=== PATIENT | male | born 1960 | race Caucasian/White ===

== ENCOUNTER 2017-07-06 10:56 | Inpatient (IN) | payer OTHER ==
[2017-07-06] MEDS ORDERED: Sodium Chloride 0.9% 2.5 ML Syringe FLUSH PRN (11:28)
[2017-07-06] MEDS ORDERED: Sodium Chloride 0.9% 10 ML Syringe FLUSH PRN (11:28)
[2017-07-06] MEDS ORDERED: Sodium Chloride 0.9% 1,000 ML IV ONE (11:29)
[2017-07-06] MEDS ORDERED: Acetaminophen 325 MG Tab PO ONE (11:30)
--- NOTE | 2017-07-06 11:37 | EDM.PDOC ---
ED HPI GENERAL MEDICAL PROBLEM - General Chief Complaint: Respiratory Problem Stated Complaint: COUGH,FEVER Time Seen by Provider: 07/06/17 11:34 Source of Information: Reports: Patient History Limitations: Reports: No Limitations - History of Present Illness INITIAL COMMENTS - FREE TEXT/NARRATIVE: HISTORY AND PHYSICAL: []56-year-old male presenting with shortness of breath cough 4 days History of Present Illness: []Patient denies any chest pain has some shortness of breath wheezing He had some small component of asthma when he was a child Patient states that he had a catheterization 2 years ago and everything was clear Review of Systems: As per history of present illness and below otherwise all systems reviewed and negative. Past medical history: As per history of present illness and as reviewed below otherwise noncontributory. Surgical history: As per history of present illness and as reviewed below otherwise noncontributory. Social history: No reported history of drug or alcohol abuse. Family history: As per history of present illness and as reviewed below otherwise noncontributory. Physical exam: Alert' oriented gentleman who is perspiring he was given Tylenol for fever when he first arrived to the emergency department. He is answering questions appropriately in full sentences without severe shortness of breath HEENT: Atraumatic, normocehpalic, pupils reactive, negative for conjunctival pallor or scleral icterus, mucous membranes moist, throat clear, neck supple, nontender, trachea midline. Lungs: Wheezing on auscultation, breath sounds equal bilaterally, chest non tender. shallow. Heart: S1S2, regular, negative for clicks, rubs, or JVD. Abdomen: Soft, nondistended, nontender. Negative for masses or hepatossplenmegaly. Negative for costovertebral tenderness. Pelvis: Stable nontender. Genitourinary: Deferred. Rectal: Deferred Extremities: Atraumatic, negative for cords or calf pain. Neurovascular unremarkable. Neuro: Awake, alert, oriented. Cranial nerves II through XII unremarkable. Cerebellum unremarkable. Motor and sensory unremarkable throughout. Exam nonfocal. Diagnostics: []cbc cmp troponin ekg Therapeutics: []duoneb Tylenol Impression: []Pneumonia Elevated troponin Plan: [] Definitive disposition and diagnosis as appropriate pending reevaluation and review of above. Onset: Gradual Duration: Day(s): (4), Getting Worse Location: Reports: Chest Quality: Reports: Other (whezing) Severity: Moderate Improves with: Reports: None Worsens with: Reports: None - Related Data Allergies Allergy/AdvReac Type Severity Reaction Status Date / Time No Known Allergies Allergy Verified 07/06/17 11:23 Home Meds: Home Meds Losartan/Hydrochlorothiazide [Losartan-HCTZ 100-12.5 MG] 100 mg PO DAILY [History] Metoprolol Succinate [Toprol XL] 07/06/17 [History] amLODIPine [Norvasc] 10 mg PO BEDTIME 07/06/17 [History] cloNIDine [Catapres] 0.2 mg PO DAILY 07/06/17 [History] Past Medical History Cardiovascular History: Reports: High Cholesterol, Hypertension - Infectious Disease History Infectious Disease History: Reports: Chicken Pox Social & Family History - Family History Family Medical History: Noncontributory - Tobacco Use Smoking Status *Q: Never Smoker - Caffeine Use Caffeine Use: Reports: Coffee - Recreational Drug Use Recreational Drug Use: No ED ROS GENERAL - Review of Systems Review Of Systems: ROS reveals no pertinent complaints other than HPI. ED EXAM, GENERAL - Physical Exam Exam: See Below Course - Vital Signs Last Recorded V/S: Last Vital Signs Temp 36.9 C 07/06/17 12:43 Pulse 86 07/06/17 14:01 Resp 12 07/06/17 14:01 BP 152/78 H 07/06/17 14:01 Pulse Ox 95 07/06/17 14:01 - Orders/Labs/Meds Orders: Active Orders 24 hr Category Date Time Status Patient Status [ADT] Stat ADT 07/06/17 14:05 Ordered EKG Documentation Completion [RC] STAT Care 07/06/17 12:32 Active RT Aerosol Therapy [RC] ASDIRECTED Care 07/06/17 12:18 Active Chest 1V Frontal [CR] Stat Exams 07/06/17 12:46 Taken CULTURE BLOOD [BC] Stat Lab 07/06/17 11:50 Results CULTURE BLOOD [BC] Stat Lab 07/06/17 11:55 Results RESPIRATORY SYNCYTIAL VIRUS AG [RM] Stat Lab 07/06/17 12:03 Ordered Sodium Chloride 0.9% [Saline Flush] Med 07/06/17 11:28 Active 10 ml FLUSH ASDIRECTED PRN Sodium Chloride 0.9% [Saline Flush] Med 07/06/17 11:28 Active 2.5 ml FLUSH ASDIRECTED PRN cefTRIAXone [Rocephin] 1 gm Med 07/06/17 13:45 Active Sodium Chloride 0.9% [Normal Saline] 50 ml IV ONETIME Blood Culture x2 Reflex Set [OM.PC] Stat Oth 07/06/17 11:28 Ordered Saline Lock Insert [OM.PC] Stat Oth 07/06/17 11:28 Ordered Medication Orders Ceftriaxone Sodium 1 gm/ (Sodium Chloride) 50 mls @ 100 mls/hr IV ONETIME MEKHI Last Admin: 07/06/17 13:54 Dose: 100 mls/hr Sodium Chloride (Saline Flush) 10 ml FLUSH ASDIRECTED PRN PRN Reason: Keep Vein Open Last Admin: 07/06/17 11:53 Dose: 10 ml Sodium Chloride (Saline Flush) 2.5 ml FLUSH ASDIRECTED PRN PRN Reason: Keep Vein Open Last Admin: 07/06/17 11:53 Dose: 2.5 ml Labs: Laboratory Tests 07/06/17 07/06/17 07/06/17 Range/Units 11:55 11:55 13:03 WBC 5.99 (4.0-11.0) K/uL RBC 5.05 (4.50-5.90) M/uL Hgb 15.1 (13.0-17.0) g/dL Hct 43.4 (38.0-50.0) % MCV 85.9 (80.0-98.0) fL MCH 29.9 (27.0-32.0) pg MCHC 34.8 (31.0-37.0) g/dL RDW Std Deviation 42.3 (28.0-62.0) fl RDW Coeff of Osman 14 (11.0-15.0) % Plt Count 170 (150-400) K/uL MPV 10.70 (7.40-12.00) fL Neut % (Auto) 71.2 (48.0-80.0) % Lymph % (Auto) 13.7 L (16.0-40.0) % [place] % (Auto) 14.9 (0.0-15.0) % Eos % (Auto) 0.0 (0.0-7.0) % Baso % (Auto) 0.2 (0.0-1.5) % Neut # (Auto) 4.3 (1.4-5.7) K/uL Lymph # (Auto) 0.8 (0.6-2.4) K/uL [place] # (Auto) 0.9 H (0.0-0.8) K/uL Eos # (Auto) 0.0 (0.0-0.7) K/uL Baso # (Auto) 0.0 (0.0-0.1) K/uL Nucleated RBC % 0.0 /100WBC Nucleated RBCs # 0 K/uL Lactate 0.9 (0.20-2.00) mmol/L Sodium 136 (136-148) mmol/L Potassium 2.9 L (3.5-5.1) mmol/L Chloride 98 (98-107) mmol/L Carbon Dioxide 30.9 (21.0-32.0) mmol/L BUN 13 (7.0-18.0) mg/dL Creatinine 1.2 (0.8-1.3) mg/dL Est Cr Clr Drug Dosing 62.73 mL/min Estimated GFR (MDRD) > 60.0 ml/min Glucose 162 H (74-106) mg/dL Calcium 8.8 (8.5-10.1) mg/dL Total Bilirubin 0.5 (0.2-1.0) mg/dL AST 38 H (15-37) IU/L ALT 45 (14-63) IU/L Alkaline Phosphatase 58 (46-116) U/L Troponin I 0.142 H* (0.000-0.056) ng/mL Total Protein 7.5 (6.4-8.2) g/dL Albumin 3.2 L (3.4-5.0) g/dL Globulin 4.3 H (2.0-3.5) g/dL Albumin/Globulin Ratio 0.7 L (1.3-2.8) Lipase 141 (73-393) U/L Meds: Medications Generic Name Dose Route Start Last Admin Trade Name Freq PRN Reason Stop Dose Admin Ceftriaxone Sodium 1 gm/ 50 mls @ 100 mls/hr 07/06/17 13:45 07/06/17 13:54 Sodium Chloride IV 100 mls/hr ONETIME MEKHI Administration Sodium Chloride 10 ml 07/06/17 11:28 07/06/17 11:53 Saline Flush FLUSH 10 ml ASDIRECTED PRN Administration Keep Vein Open Sodium Chloride 2.5 ml 07/06/17 11:28 07/06/17 11:53 Saline Flush FLUSH 2.5 ml ASDIRECTED PRN Administration Keep Vein Open Discontinued Medications Generic Name Dose Route Start Last Admin Trade Name Freq PRN Reason Stop Dose Admin Acetaminophen 650 mg 07/06/17 11:30 07/06/17 11:56 Tylenol PO 07/06/17 11:31 650 mg NOW ONE Administration Albuterol/Ipratropium 3 ml 07/06/17 12:18 07/06/17 12:45 Duoneb 3.0-0.5 Mg/3 Ml NEB 07/06/17 12:19 3 ml ONETIME ONE Administration Azithromycin 500 mg 07/06/17 13:40 07/06/17 13:54 Zithromax PO 07/06/17 13:41 500 mg ONETIME ONE Administration Sodium Chloride 1,000 mls @ 999 mls/hr 07/06/17 11:29 07/06/17 11:52 Normal Saline IV 07/06/17 12:29 999 mls/hr STAT ONE Administration Ceftriaxone Sodium/Dextrose 1 50 mls @ 100 mls/hr 07/06/17 13:41 07/06/17 13: 55 gm/ Premix IV 07/06/17 14:10 Not Given ONETIME ONE Departure - Departure Time of Disposition: 14:07 Disposition: Home, Self-Care 01 Condition: Good Clinical Impression: Pneumonia Qualifiers: Pneumonia type: due to unspecified organism Laterality: unspecified laterality Lung location: unspecified part of lung Qualified Code(s): J18.9 - Pneumonia, unspecified organism - Discharge Information Referrals: PCP,None [Primary Care Provider] - Forms: ED Department Discharge Additional Instructions: The following information is given to patients seen in the emergency department who are being discharged to home. This information is to outline your options for follow-up care. We provide all patients seen in our emergency department with a follow-up referral. The need for follow-up, as well as the timing and circumstances, are variable depending upon the specifics of your emergency department visit. If you don't have a primary care physician on staff, we will provide you with a referral. We always advise you to contact your personal physician following an emergency department visit to inform them of the circumstance of the visit and for follow-up with them and/or the need for any referrals to a consulting specialist. The emergency department will also refer you to a specialist when appropriate. This referral assures that you have the opportunity for followup care with a specialist. All of these measure are taken in an effort to provide you with optimal care, which includes your followup. Under all circumstances we always encourage you to contact your private physician who remains a resource for coordinating your care. When calling for followup care, please make the office aware that this follow-up is from your recent emergency room visit. If for any reason you are refused follow-up, please contact the [facility] emergency department at and asked to speak to the emergency department charge nurse. - My Orders Last 24 Hours: My Active Orders 07/06/17 11:28 Sodium Chloride 0.9% [Saline Flush] 10 ml FLUSH ASDIRECTED PRN Sodium Chloride 0.9% [Saline Flush] 2.5 ml FLUSH ASDIRECTED PRN Blood Culture x2 Reflex Set [OM.PC] Stat Saline Lock Insert [OM.PC] Stat 07/06/17 11:50 CULTURE BLOOD [BC] Stat 07/06/17 11:55 CULTURE BLOOD [BC] Stat 07/06/17 12:03 RESPIRATORY SYNCYTIAL VIRUS AG [RM] Stat 07/06/17 12:18 RT Aerosol Therapy [RC] ASDIRECTED 07/06/17 12:32 EKG Documentation Completion [RC] STAT 07/06/17 12:46 Chest 1V Frontal [CR] Stat 07/06/17 13:45 cefTRIAXone [Rocephin] 1 gm Sodium Chloride 0.9% [Normal Saline] 50 ml IV ONETIME 07/06/17 14:05 Patient Status [ADT] Stat - Assessment/Plan Last 24 Hours: My Active Orders 07/06/17 11:28 Sodium Chloride 0.9% [Saline Flush] 10 ml FLUSH ASDIRECTED PRN Sodium Chloride 0.9% [Saline Flush] 2.5 ml FLUSH ASDIRECTED PRN Blood Culture x2 Reflex Set [OM.PC] Stat Saline Lock Insert [OM.PC] Stat 07/06/17 11:50 CULTURE BLOOD [BC] Stat 07/06/17 11:55 CULTURE BLOOD [BC] Stat 07/06/17 12:03 RESPIRATORY SYNCYTIAL VIRUS AG [RM] Stat 07/06/17 12:18 RT Aerosol Therapy [RC] ASDIRECTED 07/06/17 12:32 EKG Documentation Completion [RC] STAT 07/06/17 12:46 Chest 1V Frontal [CR] Stat 07/06/17 13:45 cefTRIAXone [Rocephin] 1 gm Sodium Chloride 0.9% [Normal Saline] 50 ml IV ONETIME 07/06/17 14:05 Patient Status [ADT] Stat
[2017-07-06] MEDS ORDERED: Albuterol/Ipratropium 3.0-0.5 MG/3 ML Neb Soln NEB ONE (12:18)
[2017-07-06 12:30] LABS: CHLORIDE,CL 98 mmol/L (98-107); SODIUM,NA 136 mmol/L (136-148)
[2017-07-06] MEDS ORDERED: Azithromycin 250 MG Tab PO ONE (13:40)
[2017-07-06] MEDS ORDERED: cefTRIAXone 1 GM in Premix Bag 1 BAG IV ONE (13:41)
[2017-07-06] MEDS ORDERED: cefTRIAXone 1 GM in Sodium Chloride 0.9% 50 ML IV SCH (13:45)
[2017-07-06] MEDS ORDERED: Potassium Chloride 20 MEQ Tab.ER PO ONE (15:25)
[2017-07-06] MEDS ORDERED: Sodium Chloride 0.9% with KCl 1,000 ML IV SCH (15:30)
[2017-07-06] MEDS ORDERED: Aspirin 325 MG Tab PO ONE (18:20)
--- NOTE | 2017-07-06 18:37 | PCM.HP ---
H&P History of Present Illness - General Admit Problem/Dx: Admission Diagnosis/Problem Admission Diagnosis/Problem Pneumonia - History of Present Illness Initial Comments - Free Text/Narative: 56 yo male who presents with four day history of shortness of breath, productive cough, fevers and chills. Patient denies any chest pain, abdominal pain or nausea. - Related Data Allergies/Adverse Reactions: Allergies Allergy/AdvReac Type Severity Reaction Status Date / Time No Known Allergies Allergy Verified 07/06/17 15:26 Home Medications: Home Meds Aspirin [Halfprin] 81 mg PO DAILY 07/06/17 [History] Losartan/Hydrochlorothiazide [Losartan-HCTZ 100-12.5 MG] 100 mg PO DAILY [History] Metoprolol Succinate [Toprol XL 100mg] 100 mg PO DAILY 07/06/17 [History] amLODIPine [Norvasc] 10 mg PO BEDTIME 07/06/17 [History] cloNIDine [Catapres] 0.2 mg PO DAILY 07/06/17 [History] Past Medical History HEENT History: Reports: None Cardiovascular History: Reports: High Cholesterol, Hypertension Musculoskeletal History: Reports: Fracture, Other (See Below) Other Musculoskeletal History: Right femur fracture 1977. - Infectious Disease History Infectious Disease History: Reports: Chicken Pox - Past Surgical History HEENT Surgical History: Reports: None Cardiovascular Surgical History: Reports: None Musculoskeletal Surgical History: Reports: None Social & Family History - Family History Family Medical History: Noncontributory Cardiac: Reports: Hypertension - Tobacco Use Smoking Status *Q: Never Smoker Second Hand Smoke Exposure: No - Caffeine Use Caffeine Use: Reports: Coffee, Soda - Alcohol Use Days Per Week of Alcohol Use: 2 Number of Drinks Per Day: 1 Total Drinks Per Week: 2 Date of Last Drink: 06/29/17 Time of Last Drink: 21:00 - Recreational Drug Use Recreational Drug Use: No H&P Review of Systems - Review of Systems: Review Of Systems: ROS reveals no pertinent complaints other than HPI. Exam - Vital Signs Vital Signs: Last Vital Signs Temp 35.8 C 07/06/17 16:16 Pulse 85 07/06/17 16:16 Resp 18 07/06/17 16:16 BP 157/74 H 07/06/17 16:16 Pulse Ox 96 07/06/17 16:16 Weight: 122.969 kg - Exam General: Alert, Oriented HEENT: Mucosa Moist & [place] Neck: Supple Lungs: Clear to Auscultation, Normal Respiratory Effort Cardiovascular: Regular Rate, Regular Rhythm GI/Abdominal Exam: Soft, Non-Tender Extremities: Non-Tender, No Pedal Edema Skin: Warm, Dry, Intact - Patient Data Lab Results Last 24 hrs: Laboratory Results - last 24 hr 07/06/17 07/06/17 07/06/17 Range/Units 11:55 11:55 13:03 WBC 5.99 (4.0-11.0) K/uL RBC 5.05 (4.50-5.90) M/uL Hgb 15.1 (13.0-17.0) g/dL Hct 43.4 (38.0-50.0) % MCV 85.9 (80.0-98.0) fL MCH 29.9 (27.0-32.0) pg MCHC 34.8 (31.0-37.0) g/dL RDW Std Deviation 42.3 (28.0-62.0) fl RDW Coeff of Osman 14 (11.0-15.0) % Plt Count 170 (150-400) K/uL MPV 10.70 (7.40-12.00) fL Neut % (Auto) 71.2 (48.0-80.0) % Lymph % (Auto) 13.7 L (16.0-40.0) % [place] % (Auto) 14.9 (0.0-15.0) % Eos % (Auto) 0.0 (0.0-7.0) % Baso % (Auto) 0.2 (0.0-1.5) % Neut # (Auto) 4.3 (1.4-5.7) K/uL Lymph # (Auto) 0.8 (0.6-2.4) K/uL [place] # (Auto) 0.9 H (0.0-0.8) K/uL Eos # (Auto) 0.0 (0.0-0.7) K/uL Baso # (Auto) 0.0 (0.0-0.1) K/uL Nucleated RBC % 0.0 /100WBC Nucleated RBCs # 0 K/uL Lactate 0.9 (0.20-2.00) mmol/L Sodium 136 (136-148) mmol/L Potassium 2.9 L (3.5-5.1) mmol/L Chloride 98 (98-107) mmol/L Carbon Dioxide 30.9 (21.0-32.0) mmol/L BUN 13 (7.0-18.0) mg/dL Creatinine 1.2 (0.8-1.3) mg/dL Est Cr Clr Drug Dosing 62.73 mL/min Estimated GFR (MDRD) > 60.0 ml/min Glucose 162 H (74-106) mg/dL Calcium 8.8 (8.5-10.1) mg/dL Total Bilirubin 0.5 (0.2-1.0) mg/dL AST 38 H (15-37) IU/L ALT 45 (14-63) IU/L Alkaline Phosphatase 58 (46-116) U/L Troponin I 0.142 H* (0.000-0.056) ng/mL Total Protein 7.5 (6.4-8.2) g/dL Albumin 3.2 L (3.4-5.0) g/dL Globulin 4.3 H (2.0-3.5) g/dL Albumin/Globulin Ratio 0.7 L (1.3-2.8) Lipase 141 (73-393) U/L Result Diagrams: 07/06/17 11:55 07/06/17 11:55 Wagner Results Last 24 hrs: Microbiology 07/06/17 12:03 Respiratory Syncytial Virus Ag Scrn - Final Nasal, Unspecified NEGATIVE RSV ANTIGEN 07/06/17 11:55 Anaerobic Blood Culture - Final Blood - Venous - Lab Draw 07/06/17 11:50 Anaerobic Blood Culture - Final Blood - Venous Problem List Initiated/Reviewed/Updated: Yes Orders Last 24hrs: Active Orders 24 hr Category Date Time Status Patient Status [ADT] Stat ADT 07/06/17 14:05 Active Cardiac Monitoring [RC] CONTINUOUS Care 07/06/17 18:33 Ordered Oxygen Therapy [RC] PRN Care 07/06/17 18:33 Ordered RT Aerosol Therapy [RC] ASDIRECTED Care 07/06/17 12:18 Active Up ad Jennifer [RC] ASDIRECTED Care 07/06/17 18:33 Ordered VTE/DVT Education [RC] PER UNIT ROUTINE Care 07/06/17 18:33 Ordered Vital Signs [RC] Q4H Care 07/06/17 18:33 Ordered Regular Diet [DIET] Diet 07/06/17 Dinner Active Chest 1V Frontal [CR] Stat Exams 07/06/17 12:46 Taken BASIC METABOLIC PANEL,BMP [CHEM] AM Lab 07/07/17 05:11 Ordered CBC WITH AUTO DIFF [HEME] AM Lab 07/07/17 05:11 Ordered CULTURE BLOOD [BC] Stat Lab 07/06/17 11:50 Results CULTURE BLOOD [BC] Stat Lab 07/06/17 11:55 Results RESPIRATORY SYNCYTIAL VIRUS AG [RM] Stat Lab 07/06/17 12:03 Ordered TROPONIN I [CHEM] Q6H Lab 07/06/17 17:53 Ordered TROPONIN I [CHEM] Q6H Lab 07/06/17 23:53 Ordered Aspirin [Halfprin] Med 07/07/17 09:00 Ordered 81 mg PO DAILY Azithromycin [Zithromax] Med 07/07/17 13:00 Ordered 500 mg PO Q24H Losartan/Hydrochlorothiazide [Losartan-HCTZ 100-12.5 MG Med 07/07/17 09:00 Ordered ] 100 mg PO DAILY Metoprolol Succinate [Toprol XL] Med 07/07/17 09:00 Ordered 100 mg PO DAILY Sodium Chloride 0.9% [Saline Flush] Med 07/06/17 11:28 Active 10 ml FLUSH ASDIRECTED PRN Sodium Chloride 0.9% [Saline Flush] Med 07/06/17 11:28 Active 2.5 ml FLUSH ASDIRECTED PRN Sodium Chloride 0.9% with KCl [Normal Saline with 40 Med 07/06/17 15:30 Active mEq KCl] 1,000 ml IV ASDIRECTED amLODIPine [Norvasc] Med 07/06/17 21:00 Ordered 10 mg PO BEDTIME cefTRIAXone [Rocephin] Med 07/07/17 13:00 Ordered 1,000 mg IVPUSH Q24H cefTRIAXone [Rocephin] 1 gm Med 07/06/17 13:45 Active Sodium Chloride 0.9% [Normal Saline] 50 ml IV ONETIME cloNIDine [Catapres] Med 07/07/17 09:00 Ordered 0.2 mg PO DAILY Blood Culture x2 Reflex Set [OM.PC] Stat Oth 07/06/17 11:28 Ordered Saline Lock Insert [OM.PC] Stat Oth 07/06/17 11:28 Ordered Sequential Compression Device [OM.PC] Per Unit Routine Oth 07/06/17 18:33 Ordered Resuscitation Status Routine Resus Stat 07/06/17 18:33 Ordered Medication Orders Amlodipine Besylate (Norvasc) 10 mg PO BEDTIME MEKHI Aspirin (Halfprin) 81 mg PO DAILY MEKHI Azithromycin (Zithromax) 500 mg PO Q24H MEKHI Ceftriaxone Sodium (Rocephin) 1,000 mg IVPUSH Q24H [facility] Ceftriaxone Sodium 1 gm/ (Sodium Chloride) 50 mls @ 100 mls/hr IV ONETIME MEKHI Last Admin: 07/06/17 13:54 Dose: 100 mls/hr Potassium Chloride/Sodium Chloride (Normal Saline With 40 Meq Kcl) 1,000 mls @ 150 mls/hr IV ASDIRECTED MEKHI Stop: 07/06/17 22:09 Last Admin: 07/06/17 16:02 Dose: 150 mls/hr Metoprolol Succinate (Toprol Xl) 100 mg PO DAILY [facility] Non-Formulary Medication (Clonidine [Catapres]) 0.2 mg PO DAILY [facility] Non-Formulary Medication (Losartan/Hydrochlorothiazide [Losartan-Hctz 100-12.5 Mg]) 100 mg PO DAILY [facility] Sodium Chloride (Saline Flush) 10 ml FLUSH ASDIRECTED PRN PRN Reason: Keep Vein Open Last Admin: 07/06/17 11:53 Dose: 10 ml Sodium Chloride (Saline Flush) 2.5 ml FLUSH ASDIRECTED PRN PRN Reason: Keep Vein Open Last Admin: 07/06/17 11:53 Dose: 2.5 ml Assessment/Plan Comment:: 56 yo male admitted with pneumonia. We will treat with Rocephin and azithromycin. Cardiac enzymes are mildly elevated so will trend these. Patient denies any chest pain.
[2017-07-06] MEDS: Enoxaparin 40 MG/0.4 ML Syringe SUBCUT SCH (18:54)
[2017-07-06] MEDS: amLODIPine 5 MG Tab PO SCH (20:42)
[2017-07-06] MEDS: Albuterol/Ipratropium 3.0-0.5 MG/3 ML Neb Soln NEB PRN (21:02)
[2017-07-07] MEDS: Albuterol/Ipratropium 3.0-0.5 MG/3 ML Neb Soln NEB PRN (01:30)
[2017-07-07] MEDS ORDERED: methylPREDNISolone Sodium Succinate 125 MG/2 ML SDV IVPUSH ONE (03:00)
[2017-07-07 06:19] LABS: CHLORIDE,CL 102 mmol/L (98-107); SODIUM,NA 141 mmol/L (136-148)
[2017-07-07] MEDS ORDERED: Hydrochlorothiazide 12.5 MG Cap PO SCH (09:00)
[2017-07-07] MEDS: cloNIDine 0.1 MG Tab PO SCH (09:14)
[2017-07-07] MEDS: Losartan 50 MG Tab PO SCH (09:18)
[2017-07-07] MEDS: Aspirin 81 MG Tab.EC PO SCH (09:20)
[2017-07-07] MEDS: Metoprolol Succinate 100 MG Tab.ER PO SCH (09:23)
--- NOTE | 2017-07-07 09:47 | PCM.PN ---
- General Info Date of Service: 07/07/17 Admission Dx/Problem (Free Text): Admission Diagnosis/Problem Admission Diagnosis/Problem Pneumonia Subjective Update: Sitting up in the chair, reports feeling a little better. Still having some wheezing intermittently and dyspnea with productive cough. No chest pain or palpitations. No abdominal pain. Concerned about COPD Functional Status: Reports: Pain Controlled, Tolerating Diet, Urinating - Review of Systems General: Reports: Fatigue, Malaise. Denies: Fever HEENT: Reports: No Symptoms. Denies: Headaches, Sore Throat, Visual Changes Pulmonary: Reports: Shortness of Breath, Cough, Sputum, Wheezing. Denies: Hemoptysis Cardiovascular: Reports: No Symptoms. Denies: Chest Pain, Palpitations, Edema, Lightheadedness Gastrointestinal: Reports: No Symptoms. Denies: Abdominal Pain, Nausea, Vomiting Genitourinary: Reports: No Symptoms. Denies: Dysuria Musculoskeletal: Reports: No Symptoms Skin: Reports: No Symptoms Neurological: Reports: No Symptoms Psychiatric: Reports: No Symptoms - Patient Data Vitals - Most Recent: Last Vital Signs Temp 99.0 F 07/07/17 08:00 Pulse 103 H 07/07/17 09:23 Resp 20 07/07/17 08:00 BP 167/108 H 07/07/17 09:23 Pulse Ox 93 L 07/07/17 08:00 Weight - Most Recent: 122.969 kg I&O - Last 24 Hours: Intake & Output 07/06/17 07/07/17 07/07/17 22:59 06:59 14:59 Intake Total 1000 250 Output Total 350 Balance 1000 -100 Lab Results Last 24 Hours: Laboratory Results - last 24 hr 07/06/17 07/06/17 07/06/17 Range/Units 11:55 11:55 13:03 WBC 5.99 (4.0-11.0) K/uL RBC 5.05 (4.50-5.90) M/uL Hgb 15.1 (13.0-17.0) g/dL Hct 43.4 (38.0-50.0) % MCV 85.9 (80.0-98.0) fL MCH 29.9 (27.0-32.0) pg MCHC 34.8 (31.0-37.0) g/dL RDW Std Deviation 42.3 (28.0-62.0) fl RDW Coeff of Osman 14 (11.0-15.0) % Plt Count 170 (150-400) K/uL MPV 10.70 (7.40-12.00) fL Neut % (Auto) 71.2 (48.0-80.0) % Lymph % (Auto) 13.7 L (16.0-40.0) % [place] % (Auto) 14.9 (0.0-15.0) % Eos % (Auto) 0.0 (0.0-7.0) % Baso % (Auto) 0.2 (0.0-1.5) % Neut # (Auto) 4.3 (1.4-5.7) K/uL Lymph # (Auto) 0.8 (0.6-2.4) K/uL [place] # (Auto) 0.9 H (0.0-0.8) K/uL Eos # (Auto) 0.0 (0.0-0.7) K/uL Baso # (Auto) 0.0 (0.0-0.1) K/uL Nucleated RBC % 0.0 /100WBC Nucleated RBCs # 0 K/uL Lactate 0.9 (0.20-2.00) mmol/L Sodium 136 (136-148) mmol/L Potassium 2.9 L (3.5-5.1) mmol/L Chloride 98 (98-107) mmol/L Carbon Dioxide 30.9 (21.0-32.0) mmol/L BUN 13 (7.0-18.0) mg/dL Creatinine 1.2 (0.8-1.3) mg/dL Est Cr Clr Drug Dosing 62.73 mL/min Estimated GFR (MDRD) > 60.0 ml/min Glucose 162 H (74-106) mg/dL Calcium 8.8 (8.5-10.1) mg/dL Magnesium (1.5-2.0) mg/dL Total Bilirubin 0.5 (0.2-1.0) mg/dL AST 38 H (15-37) IU/L ALT 45 (14-63) IU/L Alkaline Phosphatase 58 (46-116) U/L Troponin I 0.142 H* (0.000-0.056) ng/mL Total Protein 7.5 (6.4-8.2) g/dL Albumin 3.2 L (3.4-5.0) g/dL Globulin 4.3 H (2.0-3.5) g/dL Albumin/Globulin Ratio 0.7 L (1.3-2.8) Lipase 141 (73-393) U/L 07/06/17 07/06/17 07/07/17 Range/Units 18:12 23:52 05:39 WBC 7.01 (4.0-11.0) K/uL RBC 4.79 (4.50-5.90) M/uL Hgb 14.0 (13.0-17.0) g/dL Hct 42.3 (38.0-50.0) % MCV 88.3 (80.0-98.0) fL MCH 29.2 (27.0-32.0) pg MCHC 33.1 (31.0-37.0) g/dL RDW Std Deviation 44.7 (28.0-62.0) fl RDW Coeff of Osman 14 (11.0-15.0) % Plt Count 176 (150-400) K/uL MPV 11.20 (7.40-12.00) fL Neut % (Auto) 88.4 H (48.0-80.0) % Lymph % (Auto) 7.1 L (16.0-40.0) % [place] % (Auto) 4.3 (0.0-15.0) % Eos % (Auto) 0.1 (0.0-7.0) % Baso % (Auto) 0.1 (0.0-1.5) % Neut # (Auto) 6.2 H (1.4-5.7) K/uL Lymph # (Auto) 0.5 L (0.6-2.4) K/uL [place] # (Auto) 0.3 (0.0-0.8) K/uL Eos # (Auto) 0.0 (0.0-0.7) K/uL Baso # (Auto) 0.0 (0.0-0.1) K/uL Nucleated RBC % 0.0 /100WBC Nucleated RBCs # 0 K/uL Lactate (0.20-2.00) mmol/L Sodium (136-148) mmol/L Potassium (3.5-5.1) mmol/L Chloride (98-107) mmol/L Carbon Dioxide (21.0-32.0) mmol/L BUN (7.0-18.0) mg/dL Creatinine (0.8-1.3) mg/dL Est Cr Clr Drug Dosing mL/min Estimated GFR (MDRD) ml/min Glucose (74-106) mg/dL Calcium (8.5-10.1) mg/dL Magnesium (1.5-2.0) mg/dL Total Bilirubin (0.2-1.0) mg/dL AST (15-37) IU/L ALT (14-63) IU/L Alkaline Phosphatase (46-116) U/L Troponin I 0.151 H* 0.102 H* (0.000-0.056) ng/mL Total Protein (6.4-8.2) g/dL Albumin (3.4-5.0) g/dL Globulin (2.0-3.5) g/dL Albumin/Globulin Ratio (1.3-2.8) Lipase (73-393) U/L 07/07/17 07/07/17 Range/Units 05:39 05:39 WBC (4.0-11.0) K/uL RBC (4.50-5.90) M/uL Hgb (13.0-17.0) g/dL Hct (38.0-50.0) % MCV (80.0-98.0) fL MCH (27.0-32.0) pg MCHC (31.0-37.0) g/dL RDW Std Deviation (28.0-62.0) fl RDW Coeff of Osman (11.0-15.0) % Plt Count (150-400) K/uL MPV (7.40-12.00) fL Neut % (Auto) (48.0-80.0) % Lymph % (Auto) (16.0-40.0) % [place] % (Auto) (0.0-15.0) % Eos % (Auto) (0.0-7.0) % Baso % (Auto) (0.0-1.5) % Neut # (Auto) (1.4-5.7) K/uL Lymph # (Auto) (0.6-2.4) K/uL [place] # (Auto) (0.0-0.8) K/uL Eos # (Auto) (0.0-0.7) K/uL Baso # (Auto) (0.0-0.1) K/uL Nucleated RBC % /100WBC Nucleated RBCs # K/uL Lactate (0.20-2.00) mmol/L Sodium 141 (136-148) mmol/L Potassium 3.4 L (3.5-5.1) mmol/L Chloride 102 (98-107) mmol/L Carbon Dioxide 30.1 (21.0-32.0) mmol/L BUN 13 (7.0-18.0) mg/dL Creatinine 1.1 (0.8-1.3) mg/dL Est Cr Clr Drug Dosing 68.44 mL/min Estimated GFR (MDRD) > 60.0 ml/min Glucose 139 H (74-106) mg/dL Calcium 8.6 (8.5-10.1) mg/dL Magnesium 1.7 (1.5-2.0) mg/dL Total Bilirubin (0.2-1.0) mg/dL AST (15-37) IU/L ALT (14-63) IU/L Alkaline Phosphatase (46-116) U/L Troponin I (0.000-0.056) ng/mL Total Protein (6.4-8.2) g/dL Albumin (3.4-5.0) g/dL Globulin (2.0-3.5) g/dL Albumin/Globulin Ratio (1.3-2.8) Lipase (73-393) U/L Wagner Results Last 24 Hours: Microbiology 07/06/17 12:03 Respiratory Syncytial Virus Ag Scrn - Final Nasal, Unspecified NEGATIVE RSV ANTIGEN 07/06/17 11:55 Anaerobic Blood Culture - Final Blood - Venous - Lab Draw 07/06/17 11:50 Anaerobic Blood Culture - Final Blood - Venous Med Orders - Current: Current Medications Albuterol/Ipratropium (Duoneb 3.0-0.5 Mg/3 Ml) 3 ml NEB Q4HRRT [facility] Amlodipine Besylate (Norvasc) 10 mg PO BEDTIME [facility] Last Admin: 07/06/17 20:42 Dose: 10 mg Aspirin (Halfprin) 81 mg PO DAILY [facility] Last Admin: 07/07/17 09:20 Dose: 81 mg Azithromycin (Zithromax) 500 mg PO Q24H [facility] Clonidine HCl (Catapres) 0.2 mg PO DAILY [facility] Last Admin: 07/07/17 09:14 Dose: 0.2 mg Enoxaparin Sodium (Lovenox) 40 mg SUBCUT Q24H [facility] Last Admin: 07/06/17 18:54 Dose: 40 mg Hydrochlorothiazide (Hydrochlorothiazide) 12.5 mg PO DAILY [facility] Last Admin: 07/07/17 09:21 Dose: 12.5 mg Ceftriaxone Sodium 1 gm/ (Sodium Chloride) 50 mls @ 100 mls/hr IV ONETIME [facility] Last Admin: 07/06/17 13:54 Dose: 100 mls/hr Ceftriaxone Sodium 1 gm/ (Sodium Chloride) 50 mls @ 100 mls/hr IV Q24H [facility] Losartan Potassium (Cozaar) 100 mg PO DAILY [facility] Last Admin: 07/07/17 09:18 Dose: 100 mg Metoprolol Succinate (Toprol Xl) 100 mg PO DAILY [facility] Last Admin: 07/07/17 09:23 Dose: 100 mg Sodium Chloride (Saline Flush) 10 ml FLUSH ASDIRECTED PRN PRN Reason: Keep Vein Open Last Admin: 07/06/17 11:53 Dose: 10 ml Sodium Chloride (Saline Flush) 2.5 ml FLUSH ASDIRECTED PRN PRN Reason: Keep Vein Open Last Admin: 07/06/17 11:53 Dose: 2.5 ml Discontinued Medications Acetaminophen (Tylenol) 650 mg PO NOW ONE Stop: 07/06/17 11:31 Last Admin: 07/06/17 11:56 Dose: 650 mg Albuterol/Ipratropium (Duoneb 3.0-0.5 Mg/3 Ml) 3 ml NEB ONETIME ONE Stop: 07/06/17 12:19 Last Admin: 07/06/17 12:45 Dose: 3 ml Albuterol/Ipratropium (Duoneb 3.0-0.5 Mg/3 Ml) 3 ml NEB Q4HRRT PRN PRN Reason: Shortness of Breath Last Admin: 07/07/17 01:30 Dose: 3 ml Aspirin (Aspirin) 325 mg PO ONETIME ONE Stop: 07/06/17 18:21 Last Admin: 07/06/17 18:28 Dose: 325 mg Azithromycin (Zithromax) 500 mg PO ONETIME ONE Stop: 07/06/17 13:41 Last Admin: 07/06/17 13:54 Dose: 500 mg Ceftriaxone Sodium (Rocephin) 1,000 mg IVPUSH Q24H [facility] Sodium Chloride (Normal Saline) 1,000 mls @ 999 mls/hr IV STAT ONE Stop: 07/06/17 12:29 Last Admin: 07/06/17 11:52 Dose: 999 mls/hr Ceftriaxone Sodium/Dextrose 1 (gm/ Premix) 50 mls @ 100 mls/hr IV ONETIME ONE Stop: 07/06/17 14:10 Last Admin: 07/06/17 13:55 Dose: Not Given Potassium Chloride/Sodium Chloride (Normal Saline With 40 Meq Kcl) 1,000 mls @ 150 mls/hr IV ASDIRECTED MEKHI Stop: 07/06/17 22:09 Last Infusion: 07/06/17 22:50 Dose: Infused Methylprednisolone Sodium Succinate (Solu-Medrol) 125 mg IVPUSH ONETIME ONE Stop: 07/07/17 03:01 Last Admin: 07/07/17 03:17 Dose: 125 mg Potassium Chloride (Klor-Con M20) 40 meq PO ONETIME ONE Stop: 07/06/17 15:26 Last Admin: 07/06/17 16:01 Dose: 40 meq - Exam Quality Assessment: Supplemental Oxygen, DVT Prophylaxis General: Alert, Oriented, Cooperative, No Acute Distress Neck: Supple Lungs: Decreased Breath Sounds, Rhonchi (R mid and lower lobe), Wheezing (scant expiratory wheezing bibasilar). No: Normal Respiratory Effort (dyspnea noted with speech) Cardiovascular: Regular Rate, Regular Rhythm, No Murmurs GI/Abdominal Exam: Normal Bowel Sounds, Soft, Non-Tender, No Organomegaly, No Distention, No Abnormal Bruit, No Mass, Pelvis Stable Back Exam: Normal Inspection, Full Range of Motion Extremities: Normal Inspection, Normal Range of Motion, Non-Tender, No Pedal Edema, Normal Capillary Refill Neurological: No New Focal Deficit Psy/Mental Status: Alert, Normal Affect, Normal Mood - Problem List & Annotations (1) Acute hypoxemic respiratory failure SNOMED Code(s): 636150335 Code(s): J96.01 - ACUTE RESPIRATORY FAILURE WITH HYPOXIA Status: Acute Current Visit: Yes (2) Pneumonia SNOMED Code(s): 674776696 Code(s): J18.9 - PNEUMONIA, UNSPECIFIED ORGANISM Status: Acute Current Visit: Yes Qualifiers: Pneumonia type: due to unspecified organism Laterality: unspecified laterality Lung location: unspecified part of lung Qualified Code(s): J18.9 - Pneumonia, unspecified organism (3) Elevated troponin SNOMED Code(s): 956515739, 890385771, 911574993 Code(s): R74.8 - ABNORMAL LEVELS OF OTHER SERUM ENZYMES Status: Acute Current Visit: Yes (4) Hypokalemia SNOMED Code(s): 10603091 Code(s): E87.6 - HYPOKALEMIA Status: Acute Current Visit: Yes (5) HTN (hypertension) SNOMED Code(s): 68559157 Code(s): I10 - ESSENTIAL (PRIMARY) HYPERTENSION Status: Chronic Current Visit: Yes Qualifiers: Hypertension type: essential hypertension Qualified Code(s): I10 - Essential (primary) hypertension (6) Dyslipidemia SNOMED Code(s): 896899934 Code(s): E78.5 - HYPERLIPIDEMIA, UNSPECIFIED Status: Chronic Current Visit: Yes - Problem List Review Problem List Initiated/Reviewed/Updated: Yes - My Orders Last 24 Hours: My Active Orders 07/07/17 08:46 Telemetry Monitoring [Cardiac Monitoring] [RC] . DIRECTED 07/07/17 08:47 CULTURE SPUTUM + SMEAR [RM] Routine 07/07/17 10:00 Albuterol/Ipratropium [DuoNeb 3.0-0.5 MG/3 ML] 3 ml NEB Q4HRRT - Plan Plan:: 56 yo male admitted with pneumonia. 1. Acute hypoxic respiratory failure: Dypsnea continues with hypoxia and tachypnea. Currently on 4 L NC. Had some notable wheezing in the middle of the night. Given Duonebs and Solumedrol 125 mg IV X 1 dose. Wheezing improved. Continue Duonebs every 4 hours. Continue IS and encouraged ambulation. Oxygen as needed to keep sats above 90%, wean as possible. 2. CAP: Continue Rocephin and Azithromycin. Productive cough continues, will obtain sputum culture. BC pending. No history of smoking, but has been exposed for many years to 2nd hand smoke. Will continue Solumedrol 80 mg Q8 hr IV and monitor. Will obtain CT angio of chest due to clera CXR findings. Will also obtain ECHO due to increased cardiac silhouette. No hx CHF. 3. Elevated Troponins: improving. Continues to denies chest pain. May be related to ischemic demand from above. Telemetry SR to ST no ischemic changes notes. 4. HTN: Elevated BPs, continue home medications and monitor. VTE prophylaxis: Lovenox. Dispo: 2-4 days pending improvement.
[2017-07-07] MEDS ORDERED: Potassium Chloride 20 MEQ Tab.ER PO ONE (09:51)
[2017-07-07] MEDS: Albuterol/Ipratropium 3.0-0.5 MG/3 ML Neb Soln NEB SCH ×4 (11:09→22:06)
[2017-07-07] MEDS ORDERED: methylPREDNISolone Sodium Succinate 125 MG/2 ML SDV IVPUSH SCH (11:45)
[2017-07-07] MEDS ORDERED: Iopamidol 755 MG/ML 200 ML Multipack Bottle IVPUSH ONE (12:50)
[2017-07-07] MEDS ORDERED: cefTRIAXone 1,000 MG VIAL IVPUSH SCH (13:00)
[2017-07-07] MEDS ORDERED: Sodium Chloride 0.9% 500 ML IV ONE (13:11)
[2017-07-07] MEDS: cefTRIAXone 1 GM in Sodium Chloride 0.9% 50 ML IV SCH (13:14)
[2017-07-07] MEDS: Azithromycin 250 MG Tab PO SCH (13:35)
--- NOTE | 2017-07-07 13:45 | CT ---
EXAMINATION: CTA chest HISTORY: Dyspnea COMPARISON: Radiographs dated 07/06/2017 TECHNIQUE: Axial CT imaging obtained through the chest following the administration of 50 mL of Isovu e-370 in the right arm. The first injection was suboptimal and the study was repeated which was also suboptimal in bolus timing. The second scan however had less motion artifact within the lung bases. C oronal and sagittal reconstructions obtained. FINDINGS: There is atelectasis noted within the right lung base and left upper lobe. No pleural effus ion or pneumothorax. The lungs are otherwise clear without focal consolidation. The heart is borderli ne in size with appearance of left ventricular wall thickening. The aortic root and mildly prominent at 5 cm. The main pulmonary arteries are patent. Mildly prominent mediastinal and hilar lymph nodes a re noted. No axillary lymphadenopathy. Central airways are clear. Visualized images of the upper abdomen appear normal. No suspicious osseous abnormalities. IMPRESSION: 1. No main or central pulmonary embolism however, given motion and suboptimal bolus timing a subsegme ntal pulmonary embolus cannot be excluded. 2. Mild cardiomegaly with left ventricular wall thickening. 3. Descending aorta is prominent measuring up to 4.8 cm. 4. Bibasilar atelectasis
--- NOTE | 2017-07-07 15:43 | CR ---
EXAM DATE: 07/06/17 PATIENT'S AGE: 56 Patient: CONRAD PEREZ Facility: [place], [place] Site . Site : 1960 Study: XRay Chest [id number]/29/2018 1:19:21 PM Ordering Physician: Doctor Ferrell Final Report: Pain shortness of breath portable chest. FINDINGS: Mild enlargement of the cardiac silhouette. Lungs are clear of an acute airspace or interstitial process. No effusion or pneumothorax. IMPRESSION: 1. No acute pulmonary process. Dictated by Kelly Urrutia MD @ Jul 06 2017 1:35PM (Electronic Signature) Report Signed by Proxy. TERESA
[2017-07-07] MEDS: Enoxaparin 40 MG/0.4 ML Syringe SUBCUT SCH (18:55)
[2017-07-07] MEDS: amLODIPine 5 MG Tab PO SCH (22:00)
[2017-07-07] MEDS: methylPREDNISolone Sodium Succinate 125 MG/2 ML SDV IVPUSH SCH (22:00)
[2017-07-08] MEDS: Albuterol/Ipratropium 3.0-0.5 MG/3 ML Neb Soln NEB SCH ×6 (02:44→21:10)
[2017-07-08] MEDS: methylPREDNISolone Sodium Succinate 125 MG/2 ML SDV IVPUSH SCH ×2 (04:27→13:07)
[2017-07-08] MEDS ORDERED: Potassium Chloride 20 MEQ Tab.ER PO ONE (08:03)
[2017-07-08] MEDS: Hydrochlorothiazide 25 MG Tab PO SCH (08:38)
[2017-07-08] MEDS: Losartan 50 MG Tab PO SCH (08:38)
[2017-07-08] MEDS: Metoprolol Succinate 100 MG Tab.ER PO SCH (08:39)
[2017-07-08] MEDS: Aspirin 81 MG Tab.EC PO SCH (08:39)
[2017-07-08] MEDS: cloNIDine 0.1 MG Tab PO SCH (08:39)
[2017-07-08] MEDS ORDERED: Furosemide 40 MG/4 ML VIAL IVPUSH ONE (11:08)
--- NOTE | 2017-07-08 12:16 | PCM.PN ---
Addendum entered and electronically signed by Rosa Ruggiero NP 07/08/17 12:16 : Did check A1c due to elevated BS on admission, this returned at 7.4. Diagnosing DM type 2. Will talk with patient and consult DM educator for diet education, BS checking and add Metformin. Will add Novolog SSI now with meals. Original Note: - General Info Date of Service: 07/08/17 Admission Dx/Problem (Free Text): Admission Diagnosis/Problem Admission Diagnosis/Problem Pneumonia Subjective Update: Feeling better today. Weaned off oxygen. Some dyspnea continues and noticed some swelling to lower legs. No chest pain or palpitations. Cough continues and coughing less up. No fevers. Functional Status: Reports: Pain Controlled, Tolerating Diet, Ambulating, Urinating - Review of Systems General: Reports: No Symptoms. Denies: Fever HEENT: Reports: No Symptoms. Denies: Headaches, Sore Throat, Visual Changes Pulmonary: Reports: Shortness of Breath, Cough, Sputum, Wheezing. Denies: Pleuritic Chest Pain, Hemoptysis Cardiovascular: Reports: Edema (lower legs.). Denies: Chest Pain, Palpitations Gastrointestinal: Reports: No Symptoms. Denies: Abdominal Pain, Nausea, Vomiting Genitourinary: Reports: No Symptoms. Denies: Frequency, Burning Musculoskeletal: Reports: No Symptoms Skin: Reports: No Symptoms Neurological: Reports: No Symptoms Psychiatric: Reports: No Symptoms - Patient Data Vitals - Most Recent: Last Vital Signs Temp 99.2 F 07/08/17 11:39 Pulse 105 H 07/08/17 11:39 Resp 18 07/08/17 11:39 BP 163/93 H 07/08/17 11:39 Pulse Ox 94 L 07/08/17 11:39 Weight - Most Recent: 122.969 kg I&O - Last 24 Hours: Intake & Output 07/07/17 07/08/17 07/08/17 22:59 06:59 14:59 Intake Total 800 740 Output Total 880 Balance -80 740 Lab Results Last 24 Hours: Laboratory Results - last 24 hr 07/08/17 07/08/17 07/08/17 Range/Units 08:23 08:23 08:23 WBC 10.47 (4.0-11.0) K/uL RBC 4.67 (4.50-5.90) M/uL Hgb 13.8 (13.0-17.0) g/dL Hct 40.7 (38.0-50.0) % MCV 87.2 (80.0-98.0) fL MCH 29.6 (27.0-32.0) pg MCHC 33.9 (31.0-37.0) g/dL RDW Std Deviation 43.2 (28.0-62.0) fl RDW Coeff of Osman 14 (11.0-15.0) % Plt Count 216 (150-400) K/uL MPV 11.00 (7.40-12.00) fL Neut % (Auto) 88.8 H (48.0-80.0) % Lymph % (Auto) 6.0 L (16.0-40.0) % [place] % (Auto) 5.1 (0.0-15.0) % Eos % (Auto) 0.0 (0.0-7.0) % Baso % (Auto) 0.1 (0.0-1.5) % Neut # (Auto) 9.3 H (1.4-5.7) K/uL Lymph # (Auto) 0.6 (0.6-2.4) K/uL [place] # (Auto) 0.5 (0.0-0.8) K/uL Eos # (Auto) 0.0 (0.0-0.7) K/uL Baso # (Auto) 0.0 (0.0-0.1) K/uL Nucleated RBC % 0.0 /100WBC Nucleated RBCs # 0 K/uL Sodium 139 (136-148) mmol/L Potassium 3.3 L (3.5-5.1) mmol/L Chloride 102 (98-107) mmol/L Carbon Dioxide 30.9 (21.0-32.0) mmol/L BUN 20 H (7.0-18.0) mg/dL Creatinine 1.3 (0.8-1.3) mg/dL Est Cr Clr Drug Dosing 57.91 mL/min Estimated GFR (MDRD) 56.7 ml/min Glucose 315 H (74-106) mg/dL Hemoglobin A1c 7.4 H (4.5-6.2) % Calcium 8.7 (8.5-10.1) mg/dL Troponin I 0.063 H* (0.000-0.056) ng/mL [place] Results Last 24 Hours: Microbiology 07/06/17 11:50 Aerobic Blood Culture - Preliminary Blood - Venous NO GROWTH AFTER 2 DAYS Anaerobic Blood Culture - Final 07/06/17 11:55 Aerobic Blood Culture - Preliminary Blood - Venous - Lab Draw NO GROWTH AFTER 2 DAYS Anaerobic Blood Culture - Final 07/07/17 11:53 Gram Stain - Preliminary Sputum - Expectorated Med Orders - Current: Current Medications Albuterol/Ipratropium (Duoneb 3.0-0.5 Mg/3 Ml) 3 ml NEB Q4HRRT [facility] Last Admin: 07/08/17 09:22 Dose: 3 ml Amlodipine Besylate (Norvasc) 10 mg PO BEDTIME [facility] Last Admin: 07/07/17 22:00 Dose: 10 mg Aspirin (Halfprin) 81 mg PO DAILY [facility] Last Admin: 07/08/17 08:39 Dose: 81 mg Azithromycin (Zithromax) 500 mg PO Q24H [facility] Last Admin: 07/07/17 13:35 Dose: 500 mg Clonidine HCl (Catapres) 0.2 mg PO BEDTIME [facility] Enoxaparin Sodium (Lovenox) 40 mg SUBCUT Q24H [facility] Last Admin: 07/07/17 18:55 Dose: 40 mg Hydrochlorothiazide (Hydrochlorothiazide) 25 mg PO DAILY [facility] Last Admin: 07/08/17 08:38 Dose: 25 mg Ceftriaxone Sodium 1 gm/ (Sodium Chloride) 50 mls @ 100 mls/hr IV Q24H [facility] Last Admin: 07/07/17 13:14 Dose: 100 mls/hr Losartan Potassium (Cozaar) 100 mg PO DAILY [facility] Last Admin: 07/08/17 08:38 Dose: 100 mg Methylprednisolone Sodium Succinate (Solu-Medrol) 80 mg IVPUSH Q8H [facility] Last Admin: 07/08/17 04:27 Dose: 80 mg Metoprolol Succinate (Toprol Xl) 100 mg PO DAILY [facility] Last Admin: 07/08/17 08:39 Dose: 100 mg Sodium Chloride (Saline Flush) 10 ml FLUSH ASDIRECTED PRN PRN Reason: Keep Vein Open Last Admin: 07/06/17 11:53 Dose: 10 ml Sodium Chloride (Saline Flush) 2.5 ml FLUSH ASDIRECTED PRN PRN Reason: Keep Vein Open Last Admin: 07/06/17 11:53 Dose: 2.5 ml Discontinued Medications Acetaminophen (Tylenol) 650 mg PO NOW ONE Stop: 07/06/17 11:31 Last Admin: 07/06/17 11:56 Dose: 650 mg Albuterol/Ipratropium (Duoneb 3.0-0.5 Mg/3 Ml) 3 ml NEB ONETIME ONE Stop: 07/06/17 12:19 Last Admin: 07/06/17 12:45 Dose: 3 ml Albuterol/Ipratropium (Duoneb 3.0-0.5 Mg/3 Ml) 3 ml NEB Q4HRRT PRN PRN Reason: Shortness of Breath Last Admin: 07/07/17 01:30 Dose: 3 ml Aspirin (Aspirin) 325 mg PO ONETIME ONE Stop: 07/06/17 18:21 Last Admin: 07/06/17 18:28 Dose: 325 mg Azithromycin (Zithromax) 500 mg PO ONETIME ONE Stop: 07/06/17 13:41 Last Admin: 07/06/17 13:54 Dose: 500 mg Ceftriaxone Sodium (Rocephin) 1,000 mg IVPUSH Q24H [facility] Clonidine HCl (Catapres) 0.2 mg PO DAILY [facility] Last Admin: 07/08/17 08:39 Dose: 0.2 mg Furosemide (Lasix) 40 mg IVPUSH NOW ONE Stop: 07/08/17 11:09 Last Admin: 07/08/17 11:20 Dose: 40 mg Hydrochlorothiazide (Hydrochlorothiazide) 12.5 mg PO DAILY [facility] Last Admin: 07/07/17 09:21 Dose: 12.5 mg Sodium Chloride (Normal Saline) 1,000 mls @ 999 mls/hr IV STAT ONE Stop: 07/06/17 12:29 Last Admin: 07/06/17 11:52 Dose: 999 mls/hr Ceftriaxone Sodium/Dextrose 1 (gm/ Premix) 50 mls @ 100 mls/hr IV ONETIME ONE Stop: 07/06/17 14:10 Last Admin: 07/06/17 13:55 Dose: Not Given Ceftriaxone Sodium 1 gm/ (Sodium Chloride) 50 mls @ 100 mls/hr IV ONETIME [facility] Last Admin: 07/06/17 13:54 Dose: 100 mls/hr Potassium Chloride/Sodium Chloride (Normal Saline With 40 Meq Kcl) 1,000 mls @ 150 mls/hr IV ASDIRECTED [facility] Stop: 07/06/17 22:09 Last Infusion: 07/06/17 22:50 Dose: Infused Sodium Chloride (Normal Saline) 500 mls @ 150 mls/hr IV ONETIME ONE Stop: 07/07/17 16:30 Last Admin: 07/07/17 13:15 Dose: 150 mls/hr Iopamidol (Isovue Multipack-370 (76%)) 100 ml IVPUSH ONETIME ONE Stop: 07/07/17 12:51 Last Admin: 07/07/17 12:50 Dose: 100 ml Methylprednisolone Sodium Succinate (Solu-Medrol) 125 mg IVPUSH ONETIME ONE Stop: 07/07/17 03:01 Last Admin: 07/07/17 03:17 Dose: 125 mg Methylprednisolone Sodium Succinate (Solu-Medrol) 80 mg IVPUSH Q8H [facility] Last Admin: 07/07/17 13:13 Dose: 80 mg Potassium Chloride (Klor-Con M20) 40 meq PO ONETIME ONE Stop: 07/06/17 15:26 Last Admin: 07/06/17 16:01 Dose: 40 meq Potassium Chloride (Klor-Con M20) 40 meq PO ONETIME ONE Stop: 07/07/17 09:52 Last Admin: 07/07/17 10:56 Dose: 40 meq Potassium Chloride (Klor-Con M20) 40 meq PO ONETIME ONE Stop: 07/08/17 08:04 Last Admin: 07/08/17 08:40 Dose: 40 meq - Exam Quality Assessment: DVT Prophylaxis. No: Supplemental Oxygen General: Alert, Oriented, Cooperative, No Acute Distress Neck: Supple Lungs: Crackles (R lung field), Wheezing (expiratory). No: Normal Respiratory Effort (dyspnea noted with speech) Cardiovascular: Regular Rate, Regular Rhythm Back Exam: Normal Inspection, Full Range of Motion Extremities: Normal Inspection, Normal Range of Motion, Non-Tender, Normal Capillary Refill, Pedal Edema (trace to +1 non pitting) Neurological: No New Focal Deficit Psy/Mental Status: Alert, Normal Affect, Normal Mood - Problem List & Annotations (1) Acute hypoxemic respiratory failure SNOMED Code(s): 697191781 Code(s): J96.01 - ACUTE RESPIRATORY FAILURE WITH HYPOXIA Status: Acute Current Visit: Yes (2) Pneumonia SNOMED Code(s): 377982650 Code(s): J18.9 - PNEUMONIA, UNSPECIFIED ORGANISM Status: Acute Current Visit: Yes Qualifiers: Pneumonia type: due to unspecified organism Laterality: unspecified laterality Lung location: unspecified part of lung Qualified Code(s): J18.9 - Pneumonia, unspecified organism (3) Elevated troponin SNOMED Code(s): 709398817, 459751752, 766865070 Code(s): R74.8 - ABNORMAL LEVELS OF OTHER SERUM ENZYMES Status: Acute Current Visit: Yes (4) Hypokalemia SNOMED Code(s): 78281099 Code(s): E87.6 - HYPOKALEMIA Status: Acute Current Visit: Yes (5) HTN (hypertension) SNOMED Code(s): 52446242 Code(s): I10 - ESSENTIAL (PRIMARY) HYPERTENSION Status: Chronic Current Visit: Yes Qualifiers: Hypertension type: essential hypertension Qualified Code(s): I10 - Essential (primary) hypertension (6) Dyslipidemia SNOMED Code(s): 432845684 Code(s): E78.5 - HYPERLIPIDEMIA, UNSPECIFIED Status: Chronic Current Visit: Yes - Problem List Review Problem List Initiated/Reviewed/Updated: Yes - My Orders Last 24 Hours: My Active Orders 07/07/17 11:39 Echo Comp wo Cont [US] Urgent 07/07/17 11:53 CULTURE SPUTUM + SMEAR [RM] Routine 07/07/17 13:41 Communication Order [RC] PRN 07/07/17 21:00 methylPREDNISolone Sod Succ [Solu-MEDROL] 80 mg IVPUSH Q8H 07/08/17 09:00 Hydrochlorothiazide 25 mg PO DAILY 07/08/17 21:00 cloNIDine [Catapres] 0.2 mg PO BEDTIME - Plan Plan:: 56 yo male admitted with pneumonia. 1. Acute hypoxic respiratory failure: resolved. Wheezing intermittent. Continue Duonebs every 4 hours. Continue IS and encouraged ambulation. Oxygen as needed to keep sats above 90%, wean as possible. 2. CAP: Improving. No leukocytosis. Continue Rocephin and Azithromycin. Productive cough continues but is lessening. Sputum culture gram stain reveals moderate gram + cocci in clusters/singles, moderate gram neg cocci, and few gram positive cocci in chains/pairs. BC negative x 1 day. Continue Solumedrol 80 mg Q8 hr IV and monitor. CT angio of chest revealed, no PE no consolidation, mild cardiomegaly with LV wall thickening. 3. Elevated Troponins: improving. Continues to denies chest pain. May be related to ischemic demand from above. Telemetry SR to ST no ischemic changes notes. 4. HTN: Elevated BPs, continue home medications and monitor. Reports he takes Clonidine at bedtime. Will change this. ECHO pending. Will also increase HCTZ to 25 mg daily and monitor. Lasix 40 mg IV x 1 today and monitor. VTE prophylaxis: Lovenox. Dispo: 2-4 days pending improvement.
[2017-07-08] MEDS: Azithromycin 250 MG Tab PO SCH (13:06)
[2017-07-08] MEDS: cefTRIAXone 1 GM in Sodium Chloride 0.9% 50 ML IV SCH (13:09)
[2017-07-08] MEDS: Insulin Aspart 100 Units/ML 3 ML Pen SUBCUT SCH (18:04)
[2017-07-08] MEDS: Enoxaparin 40 MG/0.4 ML Syringe SUBCUT SCH (18:09)
[2017-07-08] MEDS ORDERED: cloNIDine 0.1 MG Tab PO SCH (21:00)
[2017-07-08] MEDS: amLODIPine 5 MG Tab PO SCH (22:48)
[2017-07-09] MEDS ORDERED: methylPREDNISolone Sodium Succinate 125 MG/2 ML SDV IVPUSH SCH (01:30)
[2017-07-09] MEDS: Albuterol/Ipratropium 3.0-0.5 MG/3 ML Neb Soln NEB SCH ×3 (01:32→09:16)
[2017-07-09] MEDS: Insulin Aspart 100 Units/ML 3 ML Pen SUBCUT SCH ×2 (07:57→11:58)
[2017-07-09] MEDS: Hydrochlorothiazide 25 MG Tab PO SCH (08:00)
[2017-07-09] MEDS: Aspirin 81 MG Tab.EC PO SCH (08:01)
[2017-07-09] MEDS: Losartan 50 MG Tab PO SCH (08:01)
[2017-07-09] MEDS: Metoprolol Succinate 100 MG Tab.ER PO SCH (08:01)
[2017-07-09] MEDS ORDERED: cloNIDine 0.1 MG Tab PO SCH (09:00)
--- NOTE | 2017-07-09 12:03 | PCM.DCSUM1 ---
Discharge Summary - Hospital Course Brief History: This 56 year old male with pmh of HTN, DM type 2, and obesity presented to the ED with four day history of shortness of breath, productive cough, fevers and chills. Patient denies any chest pain, abdominal pain or nausea. - Discharge Data Discharge Date: 07/09/17 Discharge Disposition: Home, Self-Care 01 Condition: Good - Discharge Diagnosis/Problem(s) (1) Pneumonia SNOMED Code(s): 849773922 ICD Code: J18.9 - PNEUMONIA, UNSPECIFIED ORGANISM Status: Acute Qualifiers: Pneumonia type: due to unspecified organism Laterality: unspecified laterality Lung location: unspecified part of lung Qualified Code(s): J18.9 - Pneumonia, unspecified organism (2) Acute hypoxemic respiratory failure SNOMED Code(s): 002300741 ICD Code: J96.01 - ACUTE RESPIRATORY FAILURE WITH HYPOXIA Status: Resolved (3) Elevated troponin SNOMED Code(s): 038961943, 938292544, 215139115 ICD Code: R74.8 - ABNORMAL LEVELS OF OTHER SERUM ENZYMES Status: Acute (4) Hypokalemia SNOMED Code(s): 52650497 ICD Code: E87.6 - HYPOKALEMIA Status: Acute (5) HTN (hypertension) SNOMED Code(s): 41708659 ICD Code: I10 - ESSENTIAL (PRIMARY) HYPERTENSION Status: Chronic Qualifiers: Hypertension type: essential hypertension Qualified Code(s): I10 - Essential (primary) hypertension (6) Dyslipidemia SNOMED Code(s): 461268121 ICD Code: E78.5 - HYPERLIPIDEMIA, UNSPECIFIED Status: Chronic (7) DM type 2 (diabetes mellitus, type 2) SNOMED Code(s): 72240825 ICD Code: E11.9 - TYPE 2 DIABETES MELLITUS WITHOUT COMPLICATIONS Status: Chronic Qualifiers: Diabetes mellitus residential insulin use: without intermediate manager use Diabetes mellitus complication status: without complication Qualified Code(s): E11.9 - Type 2 diabetes mellitus without complications (8) Obesity SNOMED Code(s): 500548614, 574684569 ICD Code: E66.9 - OBESITY, UNSPECIFIED Status: Chronic Qualifiers: Obesity classification: adult class 3 (BMI >= 40) Body mass index: BMI 40.0 -44.9 - Patient Instructions Diet: Heart Healthy Diet, Low Sodium, Diabetic Diet Activity: No Strenuous Activities, Rest and Relax Today Showering/Bathing: May Shower Notify Provider of: Fever, Increased Pain, Swelling and Redness, Drainage, Nausea and/or Vomiting - Discharge Plan Prescriptions/Med Rec: Albuterol [IJD: Ventolin HFA] 1 puff INH Q4HR PRN #1 inh PRN Reason: Dyspnea Azithromycin 500 mg PO DAILY #4 tablet cloNIDine [Catapres] 0.2 mg PO BID #60 tablet Losartan/Hydrochlorothiazide [Losartan-HCTZ 100-25 MG] 1 each PO DAILY #30 tablet metFORMIN HCl [Metformin HCl] 1,000 mg PO BID #60 tablet Prednisone [IMW: predniSONE] 40 mg PO WITHBREAKFAST #6 tab Home Medications: Home Meds Aspirin [Halfprin] 81 mg PO DAILY 07/06/17 [History] Metoprolol Succinate [Toprol XL 100mg] 100 mg PO DAILY 07/06/17 [History] amLODIPine [Norvasc] 10 mg PO BEDTIME 07/06/17 [History] Albuterol [IJD: Ventolin HFA] 1 puff INH Q4HR PRN #1 inh 07/09/17 [Rx] Azithromycin 500 mg PO DAILY #4 tablet 07/09/17 [Rx] Losartan/Hydrochlorothiazide [Losartan-HCTZ 100-25 MG] 1 each PO DAILY #30 tablet 07/09/17 [Rx] Prednisone [IMW: predniSONE] 40 mg PO WITHBREAKFAST #6 tab 07/09/17 [Rx] cloNIDine [Catapres] 0.2 mg PO BID #60 tablet 07/09/17 [Rx] metFORMIN HCl [Metformin HCl] 1,000 mg PO BID #60 tablet 07/09/17 [Rx] Patient Handouts: Hydrochlorothiazide, HCTZ; Losartan tablets, Albuterol inhalation aerosol, Azithromycin tablets, Metformin tablets, Prednisone tablets , Clonidine tablets, Community-Acquired Pneumonia, Adult, [id number] Referrals: [facility] [Outside] Quinton Alatorre MD [Physician] - 07/16/17 9:00 am - Discharge Summary/Plan Comment DC Time >30 min.: No Discharge Summary/Plan Comment: Discharge Diagnoses: CAP Acute hypoxic respiratory failyre- resolved Obesity HTN- uncontrolled Dm type 2- A1c 7.4 Bill was admitted and treated with Rocpehin and Azithromycin for community acquired pneumonia. The first night he was noted to tachypneic with dyspnea and hypoxia. He was supplemented with as much as 4 l NC and given Duonebs and started on Solumedrol due to wheezing. He showed improvement after these interventions. CXR wsa clear, so CT angio was obtained with was also noted to be clear for consolidation and no PE. Cardiomegaly noted. Troponin barely elevated on admission, no chest pain or ischemic changes to EKG. Likely seondary to ischemia demand fro acute hypoxic respiraotry failureECHO was obtained to evaluated for CHF, results returned post discharge, but reveal EF or 65-70%, moderate concentric left ventricular hypertrophy, mild aortic valve sclerosis, mild MR regurgitation, trace aortic valve regurgitation and mild dilation of the aortic root and ascending aorta. BS were elevated and on admission, he did not disclose he was known DM taking Metformin. A1c was check and noted to be 7.4. He reports he has not been taking the Metformin as prescribed, maybe once daily or if at all. he reports trying to eat healthier and making lifestyle changes to help his BP and blood sugars. Which he has seen little improvement lately. He was highly encouraged to continue this but he needs to be taking Metformin BID and BP medications were adjusted due to elevations up to 190/100s. His Clonidine was increased to BID and HCTZ increased to 25 mg. He was not agreeable to this right away,but it was discussed with him the LVH noted on EKG and on CT, that he needs much better blood pressure control to limit continued damage to his heart. He will continue to work on diet and exercise. He is to follow up with PCP, Dr Alatorre in 1 week for follow up. Sputum culture continues to be pending on discharge. Will discharge him on Azithromycin 500 mg for 4 more days as well as Short Prednisone taper and Albuterol inhaler PRN. he is to return to ED or clnic if concerns should arise. he may benefit from PFTs and sleep study as outpatient. - General Info Date of Service: 07/09/17 Admission Dx/Problem (Free Text: Admission Diagnosis/Problem Admission Diagnosis/Problem Pneumonia Subjective Update: Feeling better today and asking for discharge home. Scant dyspnea noted but patient reports this is normal and at baseline. No chest pain. Cough much improved. Not needing oxygen therapy. Functional Status: Reports: Pain Controlled, Tolerating Diet, Ambulating, Urinating - Review of Systems General: Reports: No Symptoms. Denies: Fever, Fatigue, Malaise HEENT: Reports: No Symptoms. Denies: Headaches, Sore Throat, Rhinitis Pulmonary: Reports: Shortness of Breath (at baseline.), Cough. Denies: Sputum, Hemoptysis, Wheezing Cardiovascular: Reports: No Symptoms. Denies: Chest Pain, Palpitations, Edema, Lightheadedness Gastrointestinal: Reports: No Symptoms. Denies: Abdominal Pain, Nausea, Vomiting Genitourinary: Reports: No Symptoms. Denies: Dysuria, Frequency Musculoskeletal: Reports: No Symptoms Skin: Reports: No Symptoms Neurological: Reports: No Symptoms Psychiatric: Reports: No Symptoms - Patient Data Vitals - Most Recent: Last Vital Signs Temp 97.8 F 07/09/17 07:53 Pulse 109 H 07/09/17 08:01 Resp 19 07/09/17 07:53 BP 177/87 H 07/09/17 11:05 Pulse Ox 90 L 07/09/17 07:53 Weight - Most Recent: 122.969 kg I&O - Last 24 hours: Intake & Output 07/08/17 07/09/17 07/09/17 22:59 06:59 14:59 Intake Total 2230 2540 Output Total 2130 2200 Balance 100 340 Lab Results - Last 24 hrs: Laboratory Results - last 24 hr 07/08/17 07/09/17 07/09/17 Range/Units 17:45 05:10 05:10 WBC 15.71 H (4.0-11.0) K/uL RBC 4.75 (4.50-5.90) M/uL Hgb 13.8 (13.0-17.0) g/dL Hct 41.4 (38.0-50.0) % MCV 87.2 (80.0-98.0) fL MCH 29.1 (27.0-32.0) pg MCHC 33.3 (31.0-37.0) g/dL RDW Std Deviation 43.0 (28.0-62.0) fl RDW Coeff of Osman 14 (11.0-15.0) % Plt Count 273 (150-400) K/uL MPV 11.30 (7.40-12.00) fL Neut % (Auto) 88.6 H (48.0-80.0) % Lymph % (Auto) 6.0 L (16.0-40.0) % Wake % (Auto) 5.2 (0.0-15.0) % Eos % (Auto) 0.1 (0.0-7.0) % Baso % (Auto) 0.1 (0.0-1.5) % Neut # (Auto) 13.9 H (1.4-5.7) K/uL Lymph # (Auto) 1.0 (0.6-2.4) K/uL Wake # (Auto) 0.8 (0.0-0.8) K/uL Eos # (Auto) 0.0 (0.0-0.7) K/uL Baso # (Auto) 0.0 (0.0-0.1) K/uL Nucleated RBC % 0.0 /100WBC Nucleated RBCs # 0 K/uL Sodium 140 (136-148) mmol/L Potassium 3.3 L (3.5-5.1) mmol/L Chloride 101 (98-107) mmol/L Carbon Dioxide 30.9 (21.0-32.0) mmol/L BUN 28 H (7.0-18.0) mg/dL Creatinine 1.3 (0.8-1.3) mg/dL Est Cr Clr Drug Dosing 57.91 mL/min Estimated GFR (MDRD) 56.7 ml/min Glucose 268 H (74-106) mg/dL POC Glucose 454 H (60-110) mg/dL Calcium 9.0 (8.5-10.1) mg/dL 07/09/17 Range/Units 06:40 WBC (4.0-11.0) K/uL RBC (4.50-5.90) M/uL Hgb (13.0-17.0) g/dL Hct (38.0-50.0) % MCV (80.0-98.0) fL MCH (27.0-32.0) pg MCHC (31.0-37.0) g/dL RDW Std Deviation (28.0-62.0) fl RDW Coeff of Osman (11.0-15.0) % Plt Count (150-400) K/uL MPV (7.40-12.00) fL Neut % (Auto) (48.0-80.0) % Lymph % (Auto) (16.0-40.0) % Wake % (Auto) (0.0-15.0) % Eos % (Auto) (0.0-7.0) % Baso % (Auto) (0.0-1.5) % Neut # (Auto) (1.4-5.7) K/uL Lymph # (Auto) (0.6-2.4) K/uL Wake # (Auto) (0.0-0.8) K/uL Eos # (Auto) (0.0-0.7) K/uL Baso # (Auto) (0.0-0.1) K/uL Nucleated RBC % /100WBC Nucleated RBCs # K/uL Sodium (136-148) mmol/L Potassium (3.5-5.1) mmol/L Chloride (98-107) mmol/L Carbon Dioxide (21.0-32.0) mmol/L BUN (7.0-18.0) mg/dL Creatinine (0.8-1.3) mg/dL Est Cr Clr Drug Dosing mL/min Estimated GFR (MDRD) ml/min Glucose (74-106) mg/dL POC Glucose 243 H (60-110) mg/dL Calcium (8.5-10.1) mg/dL KAELYN Results - Last 24 hrs: Microbiology 07/06/17 11:50 Aerobic Blood Culture - Preliminary Blood - Venous NO GROWTH AFTER 3 DAYS Anaerobic Blood Culture - Final 07/06/17 11:55 Aerobic Blood Culture - Preliminary Blood - Venous - Lab Draw NO GROWTH AFTER 3 DAYS Anaerobic Blood Culture - Final 07/07/17 11:53 Gram Stain - Preliminary Sputum - Expectorated Sputum Culture - Preliminary Med Orders - Current: Current Medications Albuterol/Ipratropium (Duoneb 3.0-0.5 Mg/3 Ml) 3 ml NEB Q4HRRT [facility] Last Admin: 07/09/17 09:16 Dose: 3 ml Amlodipine Besylate (Norvasc) 10 mg PO BEDTIME [facility] Last Admin: 07/08/17 22:48 Dose: 10 mg Aspirin (Halfprin) 81 mg PO DAILY [facility] Last Admin: 07/09/17 08:01 Dose: 81 mg Azithromycin (Zithromax) 500 mg PO Q24H [facility] [place] Last Admin: 07/08/17 13:06 Dose: 500 mg Clonidine HCl (Catapres) 0.2 mg PO BID [facility] Last Admin: 07/09/17 08:49 Dose: 0.2 mg Enoxaparin Sodium (Lovenox) 40 mg SUBCUT Q24H [facility] [place] Last Admin: 07/08/17 18:09 Dose: 40 mg Hydrochlorothiazide (Hydrochlorothiazide) 25 mg PO DAILY [facility] [place] Last Admin: 07/09/17 08:00 Dose: 25 mg Ceftriaxone Sodium 1 gm/ (Sodium Chloride) 50 mls @ 100 mls/hr IV Q24H [facility] Last Admin: 07/08/17 13:09 Dose: 100 mls/hr Insulin Aspart (Novolog) 0 unit SUBCUT TIDAC [facility]; Protocol Last Admin: 07/09/17 11:58 Dose: 3 units Losartan Potassium (Cozaar) 100 mg PO DAILY [facility] Last Admin: 07/09/17 08:01 Dose: 100 mg Methylprednisolone Sodium Succinate (Solu-Medrol) 80 mg IVPUSH Q12H [facility] [place] Last Admin: 07/09/17 01:32 Dose: 80 mg Metoprolol Succinate (Toprol Xl) 100 mg PO DAILY [facility] [place] Last Admin: 07/09/17 08:01 Dose: 100 mg Sodium Chloride (Saline Flush) 10 ml FLUSH ASDIRECTED PRN PRN Reason: Keep Vein Open Last Admin: 07/06/17 11:53 Dose: 10 ml Sodium Chloride (Saline Flush) 2.5 ml FLUSH ASDIRECTED PRN PRN Reason: Keep Vein Open Last Admin: 07/06/17 11:53 Dose: 2.5 ml Discontinued Medications Acetaminophen (Tylenol) 650 mg PO NOW ONE Stop: 07/06/17 11:31 Last Admin: 07/06/17 11:56 Dose: 650 mg Albuterol/Ipratropium (Duoneb 3.0-0.5 Mg/3 Ml) 3 ml NEB ONETIME ONE Stop: 07/06/17 12:19 Last Admin: 07/06/17 12:45 Dose: 3 ml Albuterol/Ipratropium (Duoneb 3.0-0.5 Mg/3 Ml) 3 ml NEB Q4HRRT PRN PRN Reason: Shortness of Breath Last Admin: 07/07/17 01:30 Dose: 3 ml Aspirin (Aspirin) 325 mg PO ONETIME ONE Stop: 07/06/17 18:21 Last Admin: 07/06/17 18:28 Dose: 325 mg Azithromycin (Zithromax) 500 mg PO ONETIME ONE Stop: 07/06/17 13:41 Last Admin: 07/06/17 13:54 Dose: 500 mg Ceftriaxone Sodium (Rocephin) 1,000 mg IVPUSH Q24H [facility] Clonidine HCl (Catapres) 0.2 mg PO DAILY [facility] Last Admin: 07/08/17 08:39 Dose: 0.2 mg Clonidine HCl (Catapres) 0.2 mg PO BEDTIME [facility] Last Admin: 07/08/17 22:47 Dose: 0.2 mg Furosemide (Lasix) 40 mg IVPUSH NOW ONE Stop: 07/08/17 11:09 Last Admin: 07/08/17 11:20 Dose: 40 mg Hydrochlorothiazide (Hydrochlorothiazide) 12.5 mg PO DAILY [facility] Last Admin: 07/07/17 09:21 Dose: 12.5 mg Sodium Chloride (Normal Saline) 1,000 mls @ 999 mls/hr IV STAT ONE Stop: 07/06/17 12:29 Last Admin: 07/06/17 11:52 Dose: 999 mls/hr Ceftriaxone Sodium/Dextrose 1 (gm/ Premix) 50 mls @ 100 mls/hr IV ONETIME ONE Stop: 07/06/17 14:10 Last Admin: 07/06/17 13:55 Dose: Not Given Ceftriaxone Sodium 1 gm/ (Sodium Chloride) 50 mls @ 100 mls/hr IV ONETIME [facility] [place] Last Admin: 07/06/17 13:54 Dose: 100 mls/hr Potassium Chloride/Sodium Chloride (Normal Saline With 40 Meq Kcl) 1,000 mls @ 150 mls/hr IV ASDIRECTED [facility] Stop: 07/06/17 22:09 Last Infusion: 07/06/17 22:50 Dose: Infused Sodium Chloride (Normal Saline) 500 mls @ 150 mls/hr IV ONETIME ONE Stop: 07/07/17 16:30 Last Admin: 07/07/17 13:15 Dose: 150 mls/hr Iopamidol (Isovue Multipack-370 (76%)) 100 ml IVPUSH ONETIME ONE Stop: 07/07/17 12:51 Last Admin: 07/07/17 12:50 Dose: 100 ml Methylprednisolone Sodium Succinate (Solu-Medrol) 125 mg IVPUSH ONETIME ONE Stop: 07/07/17 03:01 Last Admin: 07/07/17 03:17 Dose: 125 mg Methylprednisolone Sodium Succinate (Solu-Medrol) 80 mg IVPUSH Q8H [facility] Last Admin: 07/07/17 13:13 Dose: 80 mg Methylprednisolone Sodium Succinate (Solu-Medrol) 80 mg IVPUSH Q8H [facility] [place] Last Admin: 07/08/17 13:07 Dose: 80 mg Potassium Chloride (Klor-Con M20) 40 meq PO ONETIME ONE Stop: 07/06/17 15:26 Last Admin: 07/06/17 16:01 Dose: 40 meq Potassium Chloride (Klor-Con M20) 40 meq PO ONETIME ONE Stop: 07/07/17 09:52 Last Admin: 07/07/17 10:56 Dose: 40 meq Potassium Chloride (Klor-Con M20) 40 meq PO ONETIME ONE Stop: 07/08/17 08:04 Last Admin: 07/08/17 08:40 Dose: 40 meq - Exam General: Reports: Alert, Oriented, Cooperative, No Acute Distress Neck: Reports: Supple Lungs: Reports: Clear to Auscultation, Normal Respiratory Effort Cardiovascular: Reports: Regular Rate, Regular Rhythm GI/Abdominal Exam: Normal Bowel Sounds, Soft, Non-Tender, No Organomegaly, No Distention, No Abnormal Bruit, No Mass, Pelvis Stable Back Exam: Reports: Normal Inspection, Full Range of Motion Extremities: Normal Inspection, Normal Range of Motion, Non-Tender, No Pedal Edema, Normal Capillary Refill Neurological: Reports: No New Focal Deficit Psy/Mental Status: Reports: Alert, Normal Affect, Normal Mood
[2017-07-09] MEDS: Azithromycin 250 MG Tab PO SCH (12:43)
[2017-07-09] MEDS: cefTRIAXone 1 GM in Sodium Chloride 0.9% 50 ML IV SCH (13:04)
--- NOTE | 2017-07-09 15:10 | ECHO ---
EXAM DATE: 07/06/17 PATIENT'S AGE: 56 The echocardiogram report can be seen in this patient's EMR (Electronic Medical Record) in the Reports section. The report has also been scanned into PACs. TERESA
== END 2017-07-09 12:50 | disposition home or self-care (01) | DRG 193 ==
LOC: MW.ED 10:56 → MW.MS 14:05
PROVIDERS: ADMIT Internal Medicine; ATTEND Internal Medicine
DX: J18.9 Pneumonia, unspecified organism (principal); J96.01 Acute respiratory failure with hypoxia; Z68.41 Body mass index [BMI] 40.0-44.9, adult; I10 Essential (primary) hypertension; E11.9 Type 2 diabetes mellitus without complications; R74.8 Abnormal levels of other serum enzymes; E87.6 Hypokalemia; E78.5 Hyperlipidemia, unspecified; E66.9 Obesity, unspecified; Z79.899 Other long term (current) drug therapy
CPT/HCPCS: 36415; 71045; 71045-26; 71275; 71275-26; 80048; 80053; 82962; 83036; 83605; 83690; 83735; 84484; 85025; 87040; 87070; 87186; 87205; 87807; 93005; 93306; 94640; 96365; 99285-25; A9270-GY; J1650; J1815-GY; J1940; J2930; J3480; J7040; J7050; Q9967